=== PATIENT | female | born 1990 | race African-American/Black ===

== ENCOUNTER 2024-09-06 14:22 | Emergency (ER) | payer OTHER ==
[2024-09-06 14:30] VITALS: BP 126/71; PULSE 93; RESP 20; TEMP 98.4; BMI 19.3
[2024-09-06 16:22] LABS: BASO % 0.7 % (0-2.0); EOS % 0.5 % (0-4.5); HEMATOCRIT 32.8 % (32.4-45.2); LYMPH % 44.5 % (8-40); MCH 28.4 pg (25.7-33.7); MCHC 33.5 g/dl (32.0-36.0); MEAN CELL VOLUME 84.9 fl (80-96); MEAN PLT VOLUME 6.4 fl (7.5-11.1); MONO % 7.7 % (3.8-10.2); NEUT % 46.6 % (42.8-82.8); PLATELET COUNT 386 10^3/uL (134-434); RBC 3.86 M/mm3 (3.60-5.2); RDW 12.8 % (11.6-15.6); WHITE BLOOD COUNT 5.4 K/mm3 (4.0-10.0)
[2024-09-06 16:37] LABS: EPI CELLS 8 /uL (0-25.1); HYALINE CASTS 0 /uL (0-3.1); PH,URINE 6.5 (5.0-8.0); URINE APPEARANCE CLEAR; URINE BACTERIA 142 /uL (0-1359); URINE BILIRUBIN NEGATIVE (NEGATIVE); URINE COLOR YELLOW; URINE GLUCOSE (UA) 3+ (NEGATIVE); URINE KETONE TRACE (NEGATIVE); URINE LEUK ESTERASE NEGATIVE (NEGATIVE); URINE NITRITE NEGATIVE (NEGATIVE); URINE PROTEIN NEGATIVE (NEGATIVE); URINE RBC 17 /uL (0-23.9); URINE WBC 4 /uL (0-25.8)
[2024-09-06 16:43] LABS: POTASSIUM 3.9 mmol/L (3.5-5.1)
[2024-09-06 16:49] LABS: CALCIUM 8.9 mg/dL (8.5-10.1)
[2024-09-06 16:50] LABS: BLOOD UREA NITROGEN 10.2 mg/dL (7-18)
[2024-09-06 16:52] LABS: BILIRUBIN,TOTAL 0.2 mg/dL (0.2-1)
[2024-09-06 16:54] LABS: CREATININE 0.9 mg/dL (0.55-1.3); TOT PROT 6.5 g/dl (6.4-8.2)
== END 2024-09-06 20:29 | disposition home or self-care (01) ==
LOC: JER 14:22
DX: O03.9 Complete or unspecified spontaneous abortion without complication (principal); R51.9 Headache, unspecified; R05.9 Cough, unspecified
CPT/HCPCS: 36415; 76817-TC; 80053; 81003; 84702; 85025; 87077; 87086; 87491; 87591; 99283-25